=== PATIENT | female | born 1930 | race Caucasian/White ===

== ENCOUNTER → 2017-10-06 | Outpatient (CLI) | payer OTHER ==
[~2017-10-06] MED LIST: ADULT LOW DOSE81 MG PO; ALPRAZOLAM; AVELOX400 MG PO; BENADRYL25 MG PO; CRESTOR; CRESTOR10 MG PO; DESYREL150 MG PO; DESYREL50 MG; PREDNISONE 20 M20 M1 PO; PRILOSEC 20 MG20 MG PO; RISPERDAL; RISPERDAL0.25 MG PO; RISPERDAL2 MG; TESSALON200 MG PO; VENTOLIN17 GM INH; VICODIN 5-3001 EACH; XANAX 0.25 MG0.25 MG PO
== END ==
LOC: M.RAD 17:11
DX: M51.34 Other intervertebral disc degeneration, thoracic region (principal); I70.0 Atherosclerosis of aorta

== ENCOUNTER → 2017-11-11 | Outpatient (CLI) | payer OTHER | LOC: M.MRI 16:58 | DX: M54.6 Pain in thoracic spine (principal); N28.1 Cyst of kidney, acquired; M43.8X4 Other specified deforming dorsopathies, thoracic region ==

== ENCOUNTER → 2018-11-18 | Outpatient (CLI) | payer OTHER | LOC: M.RAD 14:15 | DX: M81.0 Age-related osteoporosis without current pathological fracture (principal) ==

== ENCOUNTER 2019-01-09 21:59 | Emergency (ER) | payer OTHER ==
[~2019-01-09] VITALS: Ht 177.8 cm; Wt 63.5 kg
[2019-01-09] MEDS ORDERED: DIOVAN160 MG PO (22:26)
[2019-01-09] MEDS ORDERED: NORVASC 2.5 MG2.5 M1 PO (22:27)
[2019-01-09 22:40] LABS: ABSOLUTE EOSINOPHILS 0.2 thou/uL (0.0-0.7); ABSOLUTE LYMPHOCYTES 0.8 thou/uL (0.8-5.3); ABSOLUTE MONOCYTES 0.6 thou/uL (0.0-1.2); BASOPHILS 0.4 %; EOSINOPHILS 3.4 %; HEMATOCRIT 37.8 % (37.0-47.0); HEMOGLOBIN 13.3 gm/dL (12.0-15.0); LYMPHOCYTES 18.1 %; MCH 32.4 pg (26.0-34.0); MCHC 35.1 g/dL (28.0-37.0); MCV 92.5 fL (80.0-100.0); MONOCYTES 13.3 %; MPV 8.3 fl. (7.2-11.1); NUCLEATED RBCS 0 /100WBC; PLATELET COUNT* 217 thou/uL (150-400); POLYS 64.8 %; RBC 4.09 mil/uL (4.20-5.00); RDW-CV 12.9 % (10.5-14.5); WBC 4.7 thou/uL (4.0-11.0)
[2019-01-09 22:47] LABS: CALCIUM 8.8 mg/dL (8.5-10.1); POTASSIUM 3.6 mmol/L (3.5-5.1)
[2019-01-09 22:52] LABS: ALBUMIN 3.5 g/dL (3.4-5.0); TOTAL BILIRUBIN 0.3 mg/dL (<0.1-1.0); TOTAL PROTEIN 6.6 g/dL (6.4-8.2)
[2019-01-09 23:21] VITALS: BP 170/65
--- NOTE | 2019-01-12 10:42 | EKG ---
[place] [address] ELECTROCARDIOGRAM REPORT Name: CANDICE GREEN Room: [facility]#: [id number] Admission: 01/09/19 Attend Phys: Discharge: 01/09/19 Date of : 34 Report #: [id number] THIS REPORT FOR: //name// [facility] ED Test Date: 2019-01-09 Test Time: 22:29:36 Pat Name: CANDICE GREEN Department: Room: Gender: F [employer] Chief: DALJIT : 1930 Requested By: Neil Pierre Order Number: [id number] MD: Carter Buck Measurements Intervals [place] Rate: 77 P: -34 [place]: 201 QRS: -46 QRSD: 93 T: 43 QT: 385 QTc: 436 Interpretive Statements Sinus rhythm LVH by voltage Left anterior fascicular block Compared to ECG 10/24/2016 18:14:18 Left ventricular hypertrophy now present Electronically Signed On 01-12-2019 10:42:19 GASTROINTESTINAL TECHNICIAN by Carter Buck [email or web address] <ELECTRONICALLY SIGNED> By: Carter Buck MD, [facility] 01/12/19 1042 [id number] 28 Carter Buck MD, FACC /EPI
== END 2019-01-09 23:22 | disposition home or self-care (01) ==
LOC: M.ERS 21:59
PROVIDERS: Family Medicine
DX: I10 Essential (primary) hypertension (principal); F41.9 Anxiety disorder, unspecified; R00.2 Palpitations; Z86.73 Personal history of transient ischemic attack (TIA), and cerebral infarction without residual deficits; E78.00 Pure hypercholesterolemia, unspecified; Z90.89 Acquired absence of other organs; Z88.6 Allergy status to analgesic agent